=== PATIENT | male | born 1965 | race Caucasian/White ===

== ENCOUNTER 2021-08-03 14:53 | Emergency (ER) | payer OTHER, SELFPAY ==
--- NOTE | ~2021-08-03 | XR_ITS ---
EXAMINATION: XR tibia fibula LT 2V INDICATION: Left leg pain TECHNIQUE: Two views of the left tibia and fibula are obtained. COMPARISON: None available FINDINGS: There is anterior soft tissue swelling overlying the proximal tibia. No fracture, dislocati on, or subluxation is identified. Alignment at the knee and ankle is normal. IMPRESSION: 1. Soft tissue swelling without acute osseous abnormality. Reviewed, dictated and finalized at location A.
[2021-08-03 15:02] VITALS: BP 162/96; PULSE 57; RESP 20; TEMP 37.1; O2SAT 99
--- NOTE | 2021-08-03 15:05 | ED.LOWEXIN ---
HPI - Extremity Injury (Lower) General Chief Complaint: Extremity Injury, Lower Stated Complaint: left leg knee down injury Time Seen by Provider: 08/03/21 15:05 History of Present Illness HPI Narrative: Patient is a 56-year-old male who presents the urgent care with complaints of left lower leg injury. Patient states that he dropped a piece of sheet metal on his left lower leg 1 week ago and is now having increased pain and swelling. Patient states he even has bruising to the left foot with left foot swelling. Patient states he has been taking Tylenol for the pain. States that he has started walking with a limp due to the pain. Patient denies any history of DVT and is currently not on a blood thinner. No other acute complaints. Denies of chest pain or shortness of breath. No acute distress noted. Patient aware of the plan of care. Some parts of this dictation were generated by voice recognition software and may contain typographical and/or grammatical inaccuracies. Related Data Home Medications Medication Instructions Recorded Confirmed clonazepam 2 mg PO DAILY 08/03/21 08/03/21 dextroamphetamine-amphetamine 20 mg PO DAILY 08/03/21 08/03/21 fenofibrate 160 mg PO DAILY 08/03/21 08/03/21 lisinopril 10 mg PO DAILY 08/03/21 08/03/21 metformin 850 mg PO BID 08/03/21 08/03/21 metoprolol tartrate 100 mg PO BID 08/03/21 08/03/21 paroxetine HCl 40 mg PO DAILY 08/03/21 08/03/21 simvastatin 40 mg PO DAILY 08/03/21 08/03/21 Allergies Allergy/AdvReac Type Severity Reaction Status Date / Time amoxicillin Allergy Hives Verified 08/03/21 15:10 Review of Systems Review of Systems: CONSTITUTIONAL: Denies fever, chills, or sweats. EYES: Denies visual changes, redness, or discharge. ENT: Denies rhinorrhea, congestion, sore throat, or otalgia. CARDIOVASCULAR: Denies chest pain, palpitations, or edema. RESPIRATORY: Denies cough or dyspnea. GASTROINTESTINAL: Denies abdominal pain, nausea, vomiting, or diarrhea. GENITOURINARY: Denies dysuria or hematuria. SKIN: Reports of bruising to the left foot. Denies rash or itching. MUSCULOSKELETAL: Reports of left lower leg swelling and pain NEUROLOGIC: Denies headache, numbness, or weakness. All other systems reviewed are negative, except as documented in HPI. PMFSH Comments At the time of my signature, I reviewed and agree with the nursing past medical, surgical, social, and family history. There is no relevant family history pertinent to the patient complaint. Exam Narrative: GENERAL: This is a well-nourished, well-developed patient, in no apparent distress. HEAD: normocephalic, atraumatic. EYES: PERRL. Sclera clear/white. Vision is grossly intact. EARS: External ears normal NOSE: External nose normal with no obvious nasal discharge, nares without redness, no rhinorrhea. THROAT: Mucous membranes moist NECK: Neck supple CARDIOVASCULAR: Regular rate and rhythm without murmurs, gallops, or rubs. RESPIRATORY: Clear to auscultation. Breath sounds equal bilaterally. No wheezes, rales, or rhonchi. SKIN: warm, intact with no suspicious lesions or rash, good texture and turgor. NEURO: awake, alert, and oriented to person, place and time. There were no obvious focal neurologic abnormalities. EXTREMITIES: 17.5 inches to the left calf, 16.5 inches to the right calf. Tight nonpitting edema to the left lower leg extending to the left foot. Moderate ecchymosis to the lateral aspect of the left foot. Positive left pedal pulse with capillary refill less than 2 seconds. Range of motion to left lower extremity within normal limits. Possible deformity noted to the proximal tibia with moderate tenderness. Course Vital Signs Vital signs: Vital Signs Temperature 98.7 F 08/03/21 15:02 Pulse Rate 57 L 08/03/21 15:02 Respiratory Rate 20 08/03/21 15:02 Blood Pressure 162/96 H 08/03/21 15:02 Pulse Oximetry 99 08/03/21 15:02 Temperature 98.7 F 08/03/21 15:02 Pulse Rate 57 L 08/03/21 15:
== END 2021-08-03 15:44 | disposition left against medical advice (07) ==
PROVIDERS: Emergency Provider Nurse Practitioner Family; PCP Family Medicine
DX: S80.12XA Contusion of left lower leg, initial encounter (principal); W22.8XXA Striking against or struck by other objects, initial encounter
CPT/HCPCS: 73590; 99213; G0463